=== PATIENT | male | born 1940 | race Caucasian/White ===

== ENCOUNTER 2016-07-20 13:48 | Outpatient (CLI) | payer MEDICARE, OTHER ==
[2016-01-03 23:46] VITALS: BP 132/74
== END 2016-07-20 13:50 ==
LOC: LAB 13:48
PROVIDERS: ATTEND Nurse Practitioner Family
CPT/HCPCS: 36415; 85610

== ENCOUNTER 2016-09-10 14:35 | Emergency (ER) | payer MEDICARE, OTHER ==
[2016-09-10 16:32] VITALS: BP 146/84
--- NOTE | 2016-09-10 16:32 | ED Physician Documentation ---
Head Injury - HISTORIAN Historian: patient - HPI Stated Complaint: head lac Chief Complaint: Head Injury Additional Information: fell backwards into toilet and hit his head, no loc Onset: just prior to arrival Where: home Timing: still present Context: direct blow Severity: mild Loss of Consciousness: no loss of consciousness Further Comments: no - ROS CONST: no problems CVS/RESP: none EYES/ENT: none MS/SKIN/LYMPH: denies: weakness, numbness, neck pain, back pain, ankle swelling , leg swelling, rash GI/: denies: nausea, vomiting, abdominal pain, problems urinating - PAST HX Past History: A-Fib, other (htn, gerd, oa) Allergies/Adverse Reactions: Allergies Allergy/AdvReac Type Severity Reaction Status Date / Time No Known Allergies Allergy Verified 09/10/16 14:59 Home Medications: Ambulatory Orders Medication Instructions Recorded Carvedilol [Coreg] 6.25 mg PO BID 01/03/16 Omeprazole [Omeprazole] 40 mg PO DAILY 01/03/16 Tramadol HCl [Ultram] 50 mg PO QID 01/03/16 Warfarin Sodium [Coumadin] 10 mg PO HS 01/03/16 - SOCIAL HX Smoking History: cigarettes Alcohol Use: none Drug Use: none - FAMILY HX Family History: no significant history - VITAL SIGNS Vital Signs: Vital Signs Temp Pulse Resp BP Pulse Ox 98.0 F 70 14 146/84 100 09/10/16 14:42 09/10/16 16:31 09/10/16 16:31 09/10/16 16:31 09/10/16 16:31 - REVIEWED ASSESSMENTS Nursing Assessment Reviewed: Yes Vitals Reviewed: Yes Progress - Results/Orders Results/Orders: ct head and c-spine ordered - Progress Progress: 4 tarun palced in scalp closing wound after shaving area and cleaning with surgical soap. Critical Care Note - Critical Care Note Total Time (mins): 0 ED Results Lab/Radiology - Lab Results Lab Results: none ordered - Radiology Radiology Impressions: ct head and c-spine neg - Orders Orders: ED Orders Category Date Time Status CT BRAIN W/O CONTRAST Stat Exams 09/10/[address] C-SPINE W/O CONTRAST Stat Exams 09/10/16 Ordered Head Injury Physical Exam - Physical Exam General Appearance: no acute distress, alert Head: trauma (2 cm vertical laceration occiptal area of head). No: raccoon eyes , Arambula's sign Neck: non-tender, painless ROM, trachea midline Nexus Criteria: Nexus criteria neg Eyes: ANETTE, EOMI, lids & conjunct. nml ENT: nml external inspection, pharynx nml Neuro: alert, oriented x3, cooperative, interactive, mood/affect nml Cranial: nml as tested, no evidence of acute CVA Cerebellar: nml as tested Sensorimotor: motor nml, sensation nml Resp/CVS: chest non-tender, breath sounds nml, no resp. distress, lungs clear Abdomen: non-tender, no organomegaly, nml bowel sounds, no distention Back: non-tender, painless ROM Skin: warm/dry, normal color Extremities: atraumatic, nml ROM, gait nml - [place] Coma Score Coma Scale Eye Opening: Spontaneous Coma Scale Verbal: Oriented Coma Scale Motor: Obeys Commands (15) Discharge Clincal Impression: Laceration of scalp Qualifiers: Encounter type: initial encounter Qualified Code(s): S01.01XA - Laceration without foreign body of scalp, initial encounter Referrals: Alanis Krueger, PRN [Primary Care Provider] - 2 Days Home Medications: Ambulatory Orders Carvedilol [Coreg] 6.25 mg PO BID 01/03/16 Omeprazole [Omeprazole] 40 mg PO DAILY 01/03/16 Tramadol HCl [Ultram] 50 mg PO QID 01/03/16 Warfarin Sodium [Coumadin] 10 mg PO HS 01/03/16 Comments: discharged home in stable condition with staple care instructions Condition: Stable Disposition: 01 HOME, SELF-CARE Decision to Admit: NO Decision Time: 15:55
--- NOTE | 2016-09-10 23:59 | Diagnostic Imaging Report ---
SAVANNAH BRAR~ [facility] [address] [facility] [address] [place], [place]. [address] ~ ~ ~ ~ Report Submission Date: Sep 10, 2016 4:03:19 PM CDT Patient ~ Study Name: KALYANI JARAMILLO ~ Date: Sep 10, 2016 3:33:37 PM CDT ~ Modality Type: CT\SR Gender: M ~ Description: CT C-SPINE W/O CONTRAS : 39 ~ Institution: [facility] Physician: SAVANNAH BRAR ~ ~ ~ ~ Examination: CT cervical spine History: Fall Comparison exams: None provided Technique: CT cervical spine axial imaging with sagittal and coronal reconstruction Findings: Sagittal reconstruction demonstrates normal height and alignment the cervical vertebral bodies. No anterior compression deformity.~ Disc space narrowing from C3/4 through C6/C7. ~Mild degenerative listhesis of C7 on T1. Coronal reconstruction does not demonstrate locked or perched facets. Atlantoaxial degenerative changes. Axial imaging obtained from the skull base through T1 Lamina and pedicles are intact.~ No ossific density within the central canal. Extensive disc and facet degenerative changes. No prevertebral soft tissue abnormality. Incidentally noted are coronary artery calcifications. Impression:~ Extensive multilevel degenerative changes. No evidence for fracture. ~ Electronically signed on Sep 10, 2016 4:03:19 PM CDT by: Francois MCGILL
--- NOTE | 2016-09-11 | Diagnostic Imaging Report ---
SAVANNAH BRAR~ [facility] [address] [facility] [address] [place], [place]. [address] ~ ~ ~ ~ Report Submission Date: Sep 10, 2016 3:56:12 PM CDT Patient ~ Study Name: KALYANI JARAMILLO ~ Date: Sep 10, 2016 3:28:52 PM CDT ~ Modality Type: CT\SR Gender: M ~ Description: CT BRAIN W/O CONTRAST : 39 ~ Institution: [facility] Physician: SAVANNAH BRAR ~ ~ ~ ~ Examination: CT head without contrast History:~ Fall Comparison exam: None available Technique: Noncontrast head CT protocol. Findings: Ventricles and sulci are consistent for patient age. Cerebrocerebellar parenchyma demonstrates periventricular low attenuation consistent with small vessel disease. No evidence for parenchymal hemorrhage. No evidence for mass or mass effect. No midline shift. Few basal ganglia calcifications. ~No extra axial fluid collections. Partial visualization of the paranasal sinuses, mastoid air cells, orbits, skull and scalp without gross regularity. Impression: Age related changes. No acute parenchymal process. No hemorrhage. ~ Electronically signed on Sep 10, 2016 3:56:12 PM CDT by: Francois MCGILL
== END 2016-09-10 16:10 | disposition home or self-care (01) ==
LOC: ED 14:35
DX: S01.01XA Laceration without foreign body of scalp, initial encounter (principal); X58.XXXA Exposure to other specified factors, initial encounter; Y93.9 Activity, unspecified; Y99.9 Unspecified external cause status
CPT/HCPCS: 12001; 70450; 72125; 99283

== ENCOUNTER 2017-05-25 09:07 | Outpatient (CLI) | payer MEDICARE, OTHER | END 2017-05-25 09:08 | LOC: LAB 09:07 | PROVIDERS: ATTEND Nurse Practitioner Family | DX: I48.2 Chronic atrial fibrillation (principal); Z79.01 Long term (current) use of anticoagulants | CPT/HCPCS: 36415; 85610 ==

== ENCOUNTER 2017-06-03 08:53 | Outpatient (CLI) | payer MEDICARE, OTHER | END 2017-06-03 09:05 | LOC: LAB 08:53 | PROVIDERS: ATTEND Nurse Practitioner Family | DX: I48.2 Chronic atrial fibrillation (principal); Z79.01 Long term (current) use of anticoagulants | CPT/HCPCS: 36415; 85610 ==

== ENCOUNTER 2017-07-22 08:24 | Outpatient (CLI) | payer MEDICARE, OTHER | END 2017-07-22 08:30 | LOC: LAB 08:24 | PROVIDERS: ATTEND Nurse Practitioner Family | DX: I48.2 Chronic atrial fibrillation (principal); Z79.01 Long term (current) use of anticoagulants | CPT/HCPCS: 36415; 85610 ==

== ENCOUNTER 2017-09-27 09:13 | Outpatient (CLI) | payer MEDICARE, OTHER | END 2017-09-27 09:14 | LOC: LAB 09:13 | PROVIDERS: ATTEND Nurse Practitioner Family | DX: I48.2 Chronic atrial fibrillation (principal); Z79.01 Long term (current) use of anticoagulants | CPT/HCPCS: 36415; 85610 ==

== ENCOUNTER 2018-02-03 15:01 | Outpatient (CLI) | payer MEDICARE, OTHER | END 2018-02-03 15:06 | LOC: LAB 15:01 | PROVIDERS: ATTEND Nurse Practitioner Family | DX: I48.2 Chronic atrial fibrillation (principal); Z79.01 Long term (current) use of anticoagulants | CPT/HCPCS: 36415; 85610 ==

== ENCOUNTER 2018-03-21 13:41 | Outpatient (CLI) | payer MEDICARE, OTHER | END 2018-03-21 13:43 | LOC: LAB 13:41 | PROVIDERS: ATTEND Nurse Practitioner Family | DX: I48.2 Chronic atrial fibrillation (principal); Z79.01 Long term (current) use of anticoagulants | CPT/HCPCS: 36415; 85610 ==

== ENCOUNTER 2018-05-22 10:11 | Outpatient (CLI) | payer MEDICARE, OTHER | END 2018-05-22 10:12 | LOC: LAB 10:11 | PROVIDERS: ATTEND Nurse Practitioner Family | DX: I48.2 Chronic atrial fibrillation (principal); Z79.01 Long term (current) use of anticoagulants | CPT/HCPCS: 36415; 85610 ==

== ENCOUNTER 2018-07-21 10:38 | Outpatient (CLI) | payer MEDICARE, OTHER | END 2018-07-21 10:40 | LOC: LAB 10:38 | PROVIDERS: ATTEND Nurse Practitioner Family | DX: I48.2 Chronic atrial fibrillation (principal); Z79.01 Long term (current) use of anticoagulants | CPT/HCPCS: 36415; 85610 ==